=== PATIENT | female | born 1990 | race Caucasian/White ===

== ENCOUNTER 2017-12-13 22:28 | Emergency (ER) | payer SELFPAY, OTHER | END 2017-12-14 01:10 | disposition left against medical advice (07) | LOC: FTE 22:28 | DX: Z53.21 Procedure and treatment not carried out due to patient leaving prior to being seen by health care provider (principal) ==

== ENCOUNTER 2018-12-14 10:19 | Emergency (ER) | payer OTHER ==
[2018-12-14] MEDS: IBUPROFEN 800 MG TAB PO (11:04)
== END 2018-12-14 11:52 | disposition home or self-care (01) ==
LOC: E/R 10:19
DX: M94.0 Chondrocostal junction syndrome [Tietze] (principal)
CPT/HCPCS: 99283; Z7502

== ENCOUNTER 2018-12-30 14:10 | Emergency (ER) | payer OTHER ==
[2018-12-30] MEDS: KETOROLAC 60 MG INJ IM (16:11)
== END 2018-12-30 16:52 | disposition home or self-care (01) ==
LOC: FTE 14:10
DX: M25.511 Pain in right shoulder (principal)
CPT/HCPCS: 73030; 73030-RT; 81025; 96372; 99284-25

== ENCOUNTER 2019-03-25 22:27 | Emergency (ER) | payer OTHER ==
[2019-03-26] MEDS: HYDROCODONE/APAP (5/325) TAB PO (00:01)
[2019-03-26] MEDS: KETOROLAC 30 MG INJ IM (00:02)
[2019-03-26] MEDS: ONDANSETRON (ODT) 4 MG TAB ODT (02:43)
[2019-03-26] MEDS: DIPHENHYDRAMINE 25 MG CAP PO (02:43)
== END 2019-03-26 03:00 | disposition home or self-care (01) ==
LOC: FTE 03-26 03:00
DX: S93.402A Sprain of unspecified ligament of left ankle, initial encounter (principal); W17.89XA Other fall from one level to another, initial encounter; Y92.9 Unspecified place or not applicable
CPT/HCPCS: 73590; 73610; 73630-LT; 81025; 96372; 99284-25